=== PATIENT | female | born 1940 | race Caucasian/White ===

== ENCOUNTER → 2018-02-28 08:56 | Outpatient (CLI) | payer MEDICARE, MEDICAID ==
--- NOTE | ~2018-02-28 | HEMODYNAMI ---
PATIENT:LATANYA ARSHAD MEDICAL RECORD: [id number] : 44 LOCATION:[facility] ADMISSION DATE: 02/28/18 Generatedon:02/28/201811:25 Patient name: LATANYA ARSHAD Patient #: [id number] SSN: : 1940 Date of study: 02/28/2018 Page: Of Hemodynamic Procedure Report Patient Data Patient Demographics Procedure consent was obtained First Name: LATANYA Gender: Female Last Name: : 1940 Patient #: [id number] Age: 77 year(s) Race: Unknown Additional ID: [id number] Contact details Address: [place] [address] State: [place] City: [place] Zip code: [address] Admission Admission Data Admission Date: 02/28/2018 Admission Time: 8:56 Procedure Procedure Types Cath Procedure Peripheral Cath Diagnostic Procedure Miscellaneous Peritoneogram Procedure Description Procedure Date Procedure Date: 02/28/2018 Procedure Start Time: 11:00 Procedure End Time: 11:24 Procedure Staff Name Function Major Ochoa MD Performing Physician Marge Michel RT Monitor Shelton Lancaster RT Scrub Belkis Brooks RN Nurse Procedure Data Cath Procedure Fluoroscopy Diagnostic fluoroscopy Total fluoroscopy Time: time: 10.2 min 10.2 min Diagnostic fluoroscopy Total fluoroscopy dose: 71 dose: 71 mGy mGy Contrast Material Contrast Material Type Amount (ml) Isovue 300 65 Diagnostic catheters Device Type Used For End Catheter Placement Merit Impress Muir Procedure 5FR. 100CM catheter ([id number]) Procedure Medications Medication Administration Route Dosage Heparin Flush Bag added to field 1 bags (1000units/500ml NS) Lidocaine 1% added to field 20 Hemodynamics Rest Pre Cath Intra NCS Post Cath Medications Time Medication Route Dose Delivered Reason Notes Effectiveness by 10:59:13 Heparin Flush added 1 Bag to bags (1000units/500ml field NS) 10:59:27 Lidocaine 1% added 20ml to vial field Procedure Log Time Note 10:38:13 Shelton Lancaster RT (R) (CV) sent for patient. Start room use. 10:38:18 Time tracking: Regular hours (M-F 7:00 - 5:00) 10:38:50 Patient received from Outpatients to IR Alert and oriented. Tansferred to table in Supine position. 10:39:08 Signed procedure consent form obtained from patient. 10:39:11 Pre-procedure instructions explained to patient. 10:39:16 Use device set IR Diagnostic 10:39:21 Sterile Angiographic Pack opened to sterile field. 10:39:22 Bag Decanter (2002S) opened to sterile field. 10:39:26 Tegaderm 4 x 4 (1626W) opened to sterile field. 10:39:34 Pre-op teaching completed and patient verbalized understanding. 10:40:36 Patient pain scale 0/10 ?. 10:41:14 Left abdomen area was prepped with chlora-prep and draped in sterile fashion 10:49:07 Pt has no know allergies. 10:51:20 --------ALL STOP TIME OUT------ 10:51:24 Final Timeout: patient, procedure, and site verified with staff and physician. All members of the team are in agreement. 10:51:46 Sedation plan: None Medication:Lidocaine 10:51:54 Sharps counted by scrub and verified . 10:52:12 Full Disclosure recording started 10:52:12 Procedure started. 10:56:35 Contrast is injected into the existing catheter. 10:58:41 ROADRUNNER .035 260 glide wire ([id number]) opened to sterile field. 10:59:13 Heparin Flush Bag (1000units/500ml NS) 1 bags added to field was administered by ; ; 10:59:27 Lidocaine 1% 20ml vial added to field was administered by ; ; 11:00:00 Local anesthetic to Abdominal area with Lidocaine 1% by Major Ochoa MD.INITIAL ACCESS ONLY 11:00:29 ROADRUNNER .035 260 GLIDEWIRE IS ADVANCED INTO THE EXISTING CATHETER. 11:05:09 AMPLATZ Short Taper 260cm wire ([id number]) opened to sterile field. 11:08:01 Roadrunner wire removed. AMPLATZ 260 CM WIRE ADVANCED. 11:10:58 A [facility] Lucia Muir 5FR. 100CM catheter ([id number]) was advanced over the wire and used for Procedure. 11:11:18 AMPLATZ Short Taper 260cm wire ([id number]) opened to sterile field. 11:12:16 5 AMHARIC LINSEY IS ADVANCED OVER THE AMPLATZ WIRE. 11:16:20 Contrast is injected. 11:18:37 The existing tube is repositioned more into the peritoneum. 11:19:06 Procedure ended.(Physican Out) 11:20:11 Fluoroscopy time 10.20 minutes. 11:20:17 Fluoroscopy dose: 71 mGy 11:20:17 Flurop Dose total: 71 11:20:25 Contrast amount:Isovue 300 65ml. 11:20:28 Sharps counted by scrub and verified . 11:21:04 Post Abdominal area:stable 11:21:27 Post procedure instruction explained to patient.Patient verbalizes understanding. 11:21:29 Patient needs reinforcement of post procedure teaching. 11:21:38 See physician's report for complete and final results. 11:21:44 Procedure and supply charges have been captured, reviewed, submitted and are correct. 11:24:28 Patient transfered to Other with Wheelchair. 11:24:33 Procedure ended. 11:24:33 Full Disclosure recording stopped Device Usage Item Name Manufacture Quantity Catalog Hospital Part Current Minimal Lot# / Number Charge Number Stock Stock Serial# Code Sterile Angora 1 [id number] 5 Angiographic Health Pack Bag Decanter Microtek 1 2001S 737028 07259 372280 5 (2001S) [employer] Tegaderm 4 x 3M 1 [id number] 365902 093892 5 4 (1626W) [facility] 1 [id number] 827283 134714 089179 5 [id number] .035 260 glide wire (G98764) AMPLATZ [place] 2 [id number] 372355 241803 940330 5 [id number] Short Taper Scientific [id number] 260cm wire ([id number]) Merit Merit 1 [id number] 406333 391788 5 [facility] 5FR. 100CM catheter ([id number]) Signature Audit [place] Stage Time Signature Unsigned Intra-Procedure 02/28/2018 Marge 11:24:58 AM Anand PARKER (R) (CV) Signatures Monitor : Marge Signature : Anand RT Date : Time : [address] [place] [address]
== END | disposition home or self-care (01) ==
LOC: D.SP 08:56 → D.RAD 10:00 → D.SP 10:00
DX: I12.0 Hypertensive chronic kidney disease with stage 5 chronic kidney disease or end stage renal disease (principal)